=== PATIENT | female | born 1940 | race Hispanic/Latino ===

== ENCOUNTER 2024-12-10 11:49 | Observation (INO) | payer MEDICARE ==
[~2024-12-10] VITALS: Ht 149.9 cm; Wt 74.1 kg
[2024-12-10 12:45] LABS: BASOPHILS # (AUTO) 0.04 K/uL (0.00-0.20); BASOPHILS % (AUTO) 0.6 % (0.0-5.0); EOSINOPHILS # (AUTO) 0.01 K/uL (0.00-0.70); EOSINOPHILS % (AUTO) 0.1 % (0.0-8.0); HEMATOCRIT 46.2 % (36-48); IMMATURE GRANULOCYTE ABSOLUTE 0.02 K/uL (0-1); LYMPHOCYTES # (AUTO) 1.2 K/uL (1.0-4.8); LYMPHOCYTES % (AUTO) 17.1 % (21.0-51.0); MEAN CORPUSCULAR HEMOGLOBIN 30.1 pg (27.0-33.0); MEAN CORPUSCULAR HGB CONC 32.5 g/dL (32.0-36.0); MEAN CORPUSCULAR VOLUME 92.8 fL (79-99); MONOCYTES # (AUTO) 0.1 K/uL (0.1-1.0); MONOCYTES % (AUTO) 1.3 % (3.0-13.0); NEUTROPHILS # (AUTO) 5.6 K/uL (1.8-7.7); NEUTROPHILS % (AUTO) 80.6 % (40.0-77.0); PLATELET COUNT (AUTO) 212 K/uL (130-400); RED BLOOD CELL COUNT(AUTO) 4.98 MIL/uL (4.00-5.50); RED CELL DISTRIBUTION WIDTH 13.1 % (11.0-15.5); WHITE BLOOD COUNT (AUTO) 6.9 K/uL (4.8-10.8)
[2024-12-10 13:04] LABS: CREATININE 0.8 mg/dL (0.5-1.0); POTASSIUM 4.1 mmol/L (3.5-5.1)
--- NOTE | 2024-12-10 13:04 | HMCIMG ---
Exam Type: CT HEAD/BRAIN W/O CONTRAST Clinical Information: weakness/ Comparison: None CT Dose Index (CTDI): 57.33 mGy Dose Length Product (DLP): 956.79 total mGy-cm Findings: The examination shows atrophy. There is low attenuation throughout the periventricular white matter locations, consistent with chronic small vessel ischemic changes. No acute intra- or extra-axial fluid collections are seen. There is no evidence of acute or chronic hemorrhage. There is no mass effect or shift of midline structures. There are no areas to suggest acute infarct. The skull windows show no significant abnormalities. IMPRESSION: 1. ATROPHY AND CHRONIC SMALL VESSEL ISCHEMIC CHANGES. This study was performed using dose reduction techniques to include automated exposure control and/or adjustment of the mA and/or kV according to patient size.
--- NOTE | 2024-12-10 13:08 | EKG ---
[facility] Test Date: 2024-12-10 Test Time: 12:12:22 Pat Name: MISAEL LAMB Department: ED Room: Gender: F Dry Color Mixer: [id number] : 1940 Requested By: BOYD BRICE Order Number: [id number] Reading MD: Sha Butler Measurements Intervals [place] Rate: 70 P: 24 GA: 165 QRS: 8 QRSD: 78 T: 72 QT: 423 QTc: 456 Interpretive Statements Sinus rhythm No previous ECG available for comparison Electronically Signed On 12-10-2024 13:37:30 CDT by Sha Butler Please click the below link to view image of tracing.
[2024-12-10 13:09] LABS: INR 0.96 (0.85-1.15); PROTHROMBIN TIME 10.2 SEC (9.6-11.6)
[2024-12-10 13:11] LABS: PARTIAL THROMBOPLASTIN TIME 28.7 SEC (26.3-35.5)
[2024-12-10 13:15] LABS: B-TYPE NATRIURETIC PEPTIDE 20 pg/mL (0-100)
[2024-12-10 13:16] LABS: APPEARANCE,URINE CLEAR (CLEAR); BILIRUBIN,URINE NEGATIVE (NEGATIVE); COLOR,URINE LIGHT-YELLOW (YELLOW); GLUCOSE, URINE (UA) >=1000 mg/dL (NEGATIVE); KETONES,URINE NEGATIVE (NEGATIVE); LEUKOCYTE ESTERASE ,URINE 250 Leu/uL (NEGATIVE); NITRATE,URINE NEGATIVE (NEGATIVE); OCCULT BLOOD,URINE NEGATIVE (NEGATIVE); PROTEIN,URINE NEGATIVE (NEGATIVE); UROBILINOGEN,URINE 0.2 mg/dL (0.2-1.0)
--- NOTE | 2024-12-10 13:17 | HMCIMG ---
Exam Type: CHEST 1VW Clinical Information: cp Comparison: None Findings: The lungs are clear of infiltrates. The heart is enlarged. Bony and soft tissue structures of the chest wall are unremarkable. IMPRESSION: Cardiomegaly. Clear lungs.
[2024-12-10 13:32] LABS: ADD UA MICROSCOPIC YES
[2024-12-10 13:34] LABS: BACTERIA,URINE RARE /HPF (None Seen); SQUAMOUS EPITHELIAL CELL,UR FEW /HPF (0-2); WBC,URINE 26-50 /HPF (0-1)
--- NOTE | 2024-12-10 15:09 | ERN ---
General Chief Complaint: Allergic Reaction Stated Complaint: SWOLLEN FACE, LIPS Time Seen by MD: 11:50 Source: patient History of Present Illness Initial Comments This is a an 84-year-old female coming in to be evaluated for aphasia. Per daughter patient was not able to speak earlier today. She was evaluated at another emergency room was told that it was secondary to an allergic reaction since she had swollen lips. But daughter states that the aphasia was very pronounced and that is where there here. Allergies: Coded Allergies: baclofen (Unverified Allergy, Unknown, 12/10/24) Past Medical History Past Medical History: Diabetes-Type II, High Cholesterol, Hypertension Past Surgical History: Cholecystectomy ROS Dictation CONSTITUTIONAL: No chills, no fever, no weakness, no diaphoresis, no malaise. HEAD/FACE: No signs of trauma. EENT: No eye pain, no blurred vision, no tearing, no double vision, no ear pain, no ear discharge, no nose pain, no nasal congestion, no throat pain, no throat swelling, no mouth pain. RESPIRATORY: No cough, no orthopnea, no SOB, no stridor, no wheezing. CARDIOVASCULAR: No chest pain, no edema, no palpitations, no syncope. GASTROINTESTINAL/ABDOMINAL: No abdominal pain, no constipation, no diarrhea, no nausea, no vomiting. GENITOURINARY: No abnormal discharge, no dysuria, no frequent urination, no hematuria. No complaints of pain in the genitals. MUSCULOSKELETAL: No back pain, no gout, no joint pain, no joint swelling, no muscle pain, no muscle stiffness, no neck pain. INTEGUMENTARY: No change in color, no change in hair/nails, no dryness, no lesion, no lumps, no rash. NEUROLOGICAL/PSYCH: No anxiety, not depressed, no emotional problem, no headache, no numbness, no pre-existing deficit, no history of seizures, no tremors, no weakness. HEMATOLOGIC/LYMPHATIC: Not anemic, no history of blood clots, no apparent bleeding, no bruising, glands not swollen. All Systems Negative, Except as Noted. Physical Exam Physical Exam Dictation VITAL SIGNS: Reviewed. GENERAL APPEARANCE: Alert, oriented x3, no acute distress, obese. HEAD AND FACE: Non-traumatic. EYES: PERRL, pink conjunctivas, eyelid no trauma, anterior chamber clear. EARS: Pinnas intact and no signs of trauma or erythema. Ear canals clear and no discharge. TMs no erythema. NOSE: No discharge, no bleeding. OROPHARYNX: Mouth normal, teeth no caries, tongue pink. Pharynx clear, no erythema. Tonsils no exudates, no abscesses noted. Mucous membrane moist. NECK: Supple, non-tender, no thyromegaly, no masses, no JVD, no bruits. BREAST: Deferred. CHEST: No tenderness, no crepitus, no paradoxical movement, no retractions. LUNGS: Clear, well-ventilated, symmetric, no rales, no wheezing, no rhonchi, no stridor, good breath sounds bilaterally. HEART: Regular rate, regular rhythm, no murmur, no gallops. VASCULAR: No peripheral edema. ABDOMEN: Soft, positive bowel sounds, nondistended, no guarding, nontender, no rebound, no masses no hepatomegaly, no splenomegaly, no Sotelo's sign, no hernias. RECTAL: Deferred. GENITAL: Deferred. NEUROLOGICAL: Normal speech, gross motor function intact, gross sensory function intact. MUSCULOSKELETAL: Neck nontender, full range of motion, back nontender, full range of motion. EXTREMITIES: Nontender, full range of motion. SKIN: Color pink, dry, no turgor, no rash, no lacerations, no abrasions, no contusions. LYMPHATICS: Deferred. Results Laboratory and Microbiology Lab and Micro Result Laboratory Tests Test 12/10/24 12:17 12/10/24 12:35 Whole Blood Glucose 172 MG/DL (70-110) H White Blood Count 6.9 K/uL (4.8-10.8) Red Blood Count 4.98 MIL/uL (4.00-5.50) Hemoglobin 15.0 g/dL (12.0-16.0) Hematocrit 46.2 % (36-48) Mean Corpuscular Volume 92.8 fL (79-99) Mean Corpuscular Hemoglobin 30.1 pg (27.0-33.0) Mean Corpuscular Hemoglobin Concent 32.5 g/dL (32.0-36.0) Red Cell Distribution Width 13.1 % (11.0-15.5) Platelet Count 212 K/uL (130-400) Mean Platelet Volume 11.2 fL (7.5-10.5) H Immature Granulocyte % (Auto) 0.3 % (0-1) Neutrophils (%) (Auto) 80.6 % (40.0-77.0) H Lymphocytes (%) (Auto) 17.1 % (21.0-51.0) L Monocytes (%) (Auto) 1.3 % (3.0-13.0) L Eosinophils (%) (Auto) 0.1 % (0.0-8.0) Basophils (%) (Auto) 0.6 % (0.0-5.0) Neutrophils # (Auto) 5.6 K/uL (1.8-7.7) Lymphocytes # (Auto) 1.2 K/uL (1.0-4.8) Monocytes # (Auto) 0.1 K/uL (0.1-1.0) Eosinophils # (Auto) 0.01 K/uL (0.00-0.70) Basophils # (Auto) 0.04 K/uL (0.00-0.20) Absolute Immature Granulocyte (auto 0.02 K/uL (0-1) Nucleated Red Blood Cells 0.0 % (0.0-0.19) Prothrombin Time 10.2 SEC (9.6-11.6) Prothromb Time International Ratio 0.96 (0.85-1.15) Activated Partial Thromboplast Time 28.7 SEC (26.3-35.5) Urine Color LIGHT-YELLOW (YELLOW) Urine Appearance CLEAR (CLEAR) Urine pH 5.0 (5.0-8.0) Urine Specific [place] 1.019 (1.001-1.031) Urine Protein NEGATIVE mg/dL (NEGATIVE) Urine Glucose (UA) >=1000 mg/dL (NEGATIVE) H Urine Ketones NEGATIVE mg/dL (NEGATIVE) Urine Occult Blood NEGATIVE (NEGATIVE) Urine Nitrate NEGATIVE (NEGATIVE) Urine Bilirubin NEGATIVE mg/dL (NEGATIVE) Urine Urobilinogen 0.2 mg/dL (0.2-1.0) Urine Leukocyte Esterase 250 Paulina/uL (NEGATIVE) H Urine RBC 2-5 /HPF (0-1) H Urine WBC 26-50 /HPF (0-1) H Urine Squamous Epithelial Cells FEW /HPF (0-2) Urine Bacteria RARE /HPF (None Seen) Sodium Level 145 mmol/L (136-145) Potassium Level 4.1 mmol/L (3.5-5.1) Chloride Level 108 mmol/L (101-111) Carbon Dioxide Level 28 mmol/L (21-32) Blood Urea Nitrogen 13 mg/dL (7-18) Creatinine 0.8 mg/dL (0.5-1.0) Glomerular Filtration Rate Calc 74 mL/min (>90) Random Glucose 165 mg/dL (70-105) H Total Calcium 9.3 mg/dL (8.5-10.1) Total Creatine Kinase 41 U/L (21-232) Troponin I High Sensitivity 12 ng/L (4-50) B-Type Natriuretic Peptide 20 pg/mL (0-100) LDL Cholesterol 78 mg/dL (0-99) Labs Reviewed?: Yes EKG/XRAY/US/CT/MRI EKG Comment 12/10/2024 time 12:12 p.m. Ventricular rate 70 Sinus rhythm [place] [address] wave elevation or depression X-RAY Comment [address] [address] IMAGING REPORT Signed PATIENT: MISAEL LAMB MR#: [id number] : 1940 SEX: F AGE: 84 LOCATION: [facility] ORDER 05 STATUS: REG ER REPORT#: [id number] SERVICE 03 REASON: cp ORDERING PHYSICIAN: BOYD BRICE MD PROCEDURE: CXR1VW - CHEST 1VW Exam Type: CHEST 1VW Clinical Information: cp Comparison: None Findings: The lungs are clear of infiltrates. The heart is enlarged. Bony and soft tissue structures of the chest wall are unremarkable. IMPRESSION: Cardiomegaly. Clear lungs. DICTATED BY: GRAYSON BARBER MD DATE: 12/10/241313 ELECTRONICALLY SIGNED BY: GRAYSON BARBER MD DATE: 12/10/241316 CT Scan Comment IMAGING REPORT Signed PATIENT: MISAEL LAMB MR#: [id number] : 1940 SEX: F AGE: 84 LOCATION: [facility] ORDER 05 STATUS: REG ER REPORT#: [id number] SERVICE 1204 REASON: weakness/ ORDERING PHYSICIAN: BOYD BRICE MD PROCEDURE: HEAD WO - CT HEAD/BRAIN W/O CONTRAST Exam Type: CT HEAD/BRAIN W/O CONTRAST Clinical Information: weakness/ Comparison: None CT Dose Index (CTDI): 57.33 mGy Dose Length Product (DLP): 956.79 total mGy-cm Findings: The examination shows atrophy. There is low attenuation throughout the periventricular white matter locations, consistent with chronic small vessel ischemic changes. No acute intra- or extra-axial fluid collections are seen. There is no evidence of acute or chronic hemorrhage. There is no mass effect or shift of midline structures. There are no areas to suggest acute infarct. The skull windows show no significant abnormalities. IMPRESSION: 1. ATROPHY AND CHRONIC SMALL VESSEL ISCHEMIC CHANGES. This study was performed using dose reduction techniques to include automated exposure control and/or adjustment of the mA and/or kV according to patient size. DICTATED BY: GRAYSON BARBER MD DATE: 12/10/24 1300 ELECTRONICALLY SIGNED BY: GRAYSON BARBER MD DATE: 12/10/24 1304 MDM MDM: Differential diagnosis: Allergic reaction, TIA, CVA, Rationale: Tests considered and ordered secondary to shared decision making include: labs, ECG and radiology Previous outside records reviewed: Old ER visits. Risk of complication and/or morbidity or mortality of patient management: None Medications-Per medication reconciliation Need for hospitalization: Patient does meet criteria for hospitalization. Need for emergency major/minor surgery: No There are no social concerns with this patient. Prescription drug management Prescriptions will include symptomatic care Patient's prior external medical records from other ER visits were reviewed by me as indicated. Prior testing and results from previous visits were reviewed. Prior tests were taken into account with medical decision making and resource utilization, independent historian/historians were used to obtain complete medical history. I independently interpreted the test that were performed, results were reviewed by me and considered findings on radiology if ordered. Medical management and examination interpretation discussions were had by me with other qualified healthcare professionals as indicated for the patient's care. Patient will be admitted under the care of hospitalist group for ongoing evaluation of a possible TIA. ED Course Orders Procedure Category Date Status Time Cbc With Differential LAB 12/10/24 Complete 12:04 Prothrombin Time With LAB 12/10/24 Complete INR 12:04 Partial LAB 12/10/24 Complete Thromboplastin Time 12:04 Ct Head/Brain W/O CT 12/10/24 Resulted Contrast 12:04 Chest 1vw RAD 12/10/24 Resulted 12:04 12 Lead Ekg Tracing- EKG 12/10/24 Resulted Technical 12:04 Creatine Kinase, Total LAB 12/10/24 Complete 12:04 Ldl Direct LAB 12/10/24 Complete 12:04 Troponin I High LAB 12/10/24 Complete Sensitivity 12:04 Urinalysis Profile LAB 12/10/24 Complete 12:04 B-Type Natriuretic LAB 12/10/24 Complete Peptide 12:04 Bedside Glucose CPOE 12/10/24 Transmitted Fingerstick 12:04 Basic Metabolic Panel LAB 12/10/24 Complete 12:04 Culture Urine MANI 12/10/24 In Process 13:32 Vital Signs Date Time Temp Pulse Resp B/P (MAP) Pulse Ox O2 Delivery O2 Flow Rate FiO2 12/10/24 14:00 97.7 75 12 136/67 97 Room Air* 0 21 12/10/24 12:39 97.7 67 14 132/64 98 Room Air* 0 21 12/10/24 11:53 98.4 78 16 152/66 95 Room Air 0 DX & DISP Disposition: Inpatient Decision to Admit Time: 15:17 Departure Impression: Primary Impression: TIA (transient ischemic attack) Additional Impression: Allergic reaction Condition: Stable Referrals: SHERIF TRIPATHI MD (PCP) BOYD BRICE MD Dec 10, 2024 15:09
[2024-12-10] MEDS ORDERED: acetaMINOPHEN 325 MG TAB PO PRN (15:30)
[2024-12-10] MEDS ORDERED: LACTULOSE 20 GM/30 ML UDCUP PO PRN (15:30)
[2024-12-10] MEDS ORDERED: ondanSETRON 4MG INJ IVP PRN (15:30)
[2024-12-10] MEDS ORDERED: hydrALAZine 20MG/ML VIAL IV PRN (15:30)
--- NOTE | 2024-12-10 15:33 | HP ---
[facility] Date of Service: Dec 10, 2024 Time of Service: 15:15 HISTORY OF PRESENT ILLNESS: [ ] Admission date 12/10/2024 PCP: Mickey Raphael MD chief complaints: swollen face and lip Chris Mcintosh is a 84-year-old female that presents in ED with chief complaints episodes of aphasia. Witnessed per patient son, Earlier she was treated at ER standing for chief complaints of swollen face and lips patient was treated with IV steroids and Benadryl. Daughter is concerned that her aphasia with slurred speech, slow to respond was very pronounced while she was in ER standing. ER physician from emergency room was told that it was secondary to a allergic reaction since her lips were swollen. Patient left AMA per daughter wishes and brought her to [facility] ER for further evaluation and treatment. Suspecting TIA versus stroke. Patient seen in ED: patient continue with swollen to upper lip. patient has a slight facial drool to right side: which her daughter says she has always had it. The patient was able to answer my questions moves all extremity with limited left lower extremity given to chronic low back pain. All questions and concerns were addressed. REVIEW OF SYSTEMS 14 point ROS was obtained all relevant positives documented otherwise ROS negative PAST MEDICAL HISTORY: [ ] refer to HPI PAST SURGICAL HISTORY: [ ] Cholecystectomy appendectomy, hysterectomy one removal ovary PAST SOCIAL HISTORY: [ ] FAMILY HISTORY: [ ] noncontributory Coded Allergies: baclofen (Unverified Allergy, Unknown, 12/10/24) PHYSICAL EXAM GENERAL APPEARANCE: The patient is awake, alert, and oriented, in no acute cardiopulmonary distress. NEUROLOGICAL: Cranial nerves II-XII grossly intact. Motor is 5/5 in bilateral upper and lower extremities proximal to distal. No sensory deficits. HEENT: Face is symmetric. Pupils are equal and reactive. Extraocular movements are intact. NECK: Supple. No JVD. No thyromegaly. No submental, submandibular, pre- /postauricular, occipital or supraclavicular lymphadenopathy. CHEST: Normal chest expansion. No Telemetry. LUNGS: Absence of any rales, rhonchi or any wheezing. CARDIOVASCULAR: Regular. S1 and S2 normal. No appreciable rubs, murmurs or gallops. ABDOMEN: Soft, nontender, and nondistended. There is no rebound, voluntary guarding, or rigidity. : Deferred. No Vasquez. EXTREMITIES: Non-edematous and not cyanotic. No clubbing. Good capillary refill. SKIN: No skin breakdown. Vital Sign (Last 24 Hours) 12/10/24 14:00 Temp 97.7 Pulse 75 Resp 12 B/P (MAP) 136/67 Pulse Ox 97 O2 Delivery Room Air* O2 Flow Rate 0 FiO2 21 LABS: Laboratory: Test 12/10/24 12:35 12/10/24 12:17 Range/Units White Blood Count 6.9 4.8-10.8 K/uL Red Blood Count 4.98 4.00-5.50 MIL/uL Hemoglobin 15.0 12.0-16.0 g/dL Hematocrit 46.2 36-48 % Mean Corpuscular Volume 92.8 79-99 fL Mean Corpuscular Hemoglobin 30.1 27.0-33.0 pg Mean Corpuscular Hemoglobin Concent 32.5 32.0-36.0 g/dL Red Cell Distribution Width 13.1 11.0-15.5 % Platelet Count 212 130-400 K/uL Mean Platelet Volume 11.2 H 7.5-10.5 fL Immature Granulocyte % (Auto) 0.3 0-1 % Neutrophils (%) (Auto) 80.6 H 40.0-77.0 % Lymphocytes (%) (Auto) 17.1 L 21.0-51.0 % Monocytes (%) (Auto) 1.3 L 3.0-13.0 % Eosinophils (%) (Auto) 0.1 0.0-8.0 % Basophils (%) (Auto) 0.6 0.0-5.0 % Neutrophils # (Auto) 5.6 1.8-7.7 K/uL Lymphocytes # (Auto) 1.2 1.0-4.8 K/uL Monocytes # (Auto) 0.1 0.1-1.0 K/uL Eosinophils # (Auto) 0.01 0.00-0.70 K/uL Basophils # (Auto) 0.04 0.00-0.20 K/uL Absolute Immature Granulocyte (auto 0.02 0-1 K/uL Nucleated Red Blood Cells 0.0 0.0-0.19 % Prothrombin Time 10.2 9.6-11.6 SEC Prothromb Time International Ratio 0.96 0.85-1.15 Activated Partial Thromboplast Time 28.7 26.3-35.5 SEC Urine Color LIGHT-YELLOW YELLOW Urine Appearance CLEAR CLEAR Urine pH 5.0 5.0-8.0 Urine Specific [place] 1.019 1.001-1.031 Urine Protein NEGATIVE NEGATIVE mg/dL Urine Glucose (UA) >=1000 H NEGATIVE mg/dL Urine Ketones NEGATIVE NEGATIVE mg/dL Urine Occult Blood NEGATIVE NEGATIVE Urine Nitrate NEGATIVE NEGATIVE Urine Bilirubin NEGATIVE NEGATIVE mg/dL Urine Urobilinogen 0.2 0.2-1.0 mg/dL Urine Leukocyte Esterase 250 H NEGATIVE Paulina/uL Urine RBC 2-5 H 0-1 /HPF Urine WBC 26-50 H 0-1 /HPF Urine Squamous Epithelial Cells FEW 0-2 /HPF Urine Bacteria RARE None Seen /HPF Sodium Level 145 136-145 mmol/L Potassium Level 4.1 3.5-5.1 mmol/L Chloride Level 108 101-111 mmol/L Carbon Dioxide Level 28 21-32 mmol/L Blood Urea Nitrogen 13 7-18 mg/dL Creatinine 0.8 0.5-1.0 mg/dL Glomerular Filtration Rate Calc 74 >90 mL/min Random Glucose 165 H 70-105 mg/dL Total Calcium 9.3 8.5-10.1 mg/dL Total Creatine Kinase 41 21-232 U/L Troponin I High Sensitivity 12 4-50 ng/L B-Type Natriuretic Peptide 20 0-100 pg/mL LDL Cholesterol 78 0-99 mg/dL Whole Blood Glucose 172 H 70-110 MG/DL DIAGNOSTICS / RADIOLOGY: [ ] ASSESSMENT: Aphasia: TIA, stroke versus allergic reaction POA allergic reaction secondary to new medication; Baclofen POA chronic problems: DM type II, HTN, HLD chronic PLAN: [ ] Admit: Medical and surgical floor condition: guarded Status: full code neuro check q 4 hrs x24 hrs Benadryl 12.5 mg IV x3 doses Consultants: neurologist: DR Gregorio will follow recommendations Test: carotid doppler, MRI brain, Echo to eval LV function PT eval and treat, Speech eval NPO for now until seen by speech. aspiration precaution HOB elevate at 45 degree at all time. Fall precaution Labs cbc, cmp, mag+ tsh, lipid panel in am A1c Replace electrolytes as needed as per protocol to keep potassium above 4.0 mag nesium 2.0. Home medications pending to be reviewed by RN nurse. PRN: MEDICATIONS Tylenol 650 mg po every 4 hrs for fever Zofran 4 mg IV every 6 hrs for n/v Hydralazine 5 mg IV every 4 hrs systolic pressure > 160 bowel regiment: lactulose 20 gm PO BID PRN constipation Supportive measures: DVT ppx, GI ppx all questions answered time spent: > 35 min Supervising MD: Dr. Jane c/d This document was generated in part using voice recognition software, occasional wrong word or sound alike substitutions may have occurred due to the inherent limitations of voice recognition software. Read the chart carefully and recognize using context, where the substitutions have occurred. Although every effort was made to edit the content, supervisor claims and typing errors may occur ATTESTATION BY PHYSICIAN I have seen and examined the patient. I reviewed the documentation, medical decision making, and treatment plan as noted by the mid-level provider above. I agree with the findings and plan of care. MARY JANE MD, ELIZABETH NP Dec 10, 2024 15:33
[2024-12-10] MEDS ORDERED: PoTASSium chloRIDE 20MEQ/100ML 100 ML IV PRN ×2 (16:00)
[2024-12-10] MEDS ORDERED: PoTASSium chl 10% ELIXIR 20MEQ 20 MEQ/15 ML UDCUP PO PRN (16:00)
--- NOTE | 2024-12-10 16:04 | HMCIMG ---
Carotid Duplex and color-flow Doppler bilateral Clinical Information: tia, storke Comparison: None Findings: Mild bilateral bifurcation plaque is seen. No hemodynamically significant stenosis noted. Left Internal Carotid Artery Peak Systolic Velocity (PSV), Left Internal Carotid to Common Carotid Artery peak systolic velocity ratio, Right Internal Carotid Artery Peak Systolic Velocity (PSV) and Right Internal Carotid to Common Carotid Artery peak systolic velocity ratio, are all within normal limits. External carotid artery velocities normal bilaterally. Bilateral vertebral arteries show normal velocities and waveforms with antegrade flow. Impression: No hemodynamically significant stenosis noted. NASCET CRITERIA. The degree of internal carotid artery stenosis is based on NASCET criteria. Normal is no stenosis. Mild is less than 50% stenosis. Moderate is 50-69% stenosis. Severe is 70% to 99% stenosis. Total occlusion is no detectable patent lumen.
[2024-12-10] MEDS: INSULIN humuLIN R 100 UNIT/ML 3ML SQ SCH (16:30)
[2024-12-10] MEDS: DiphenhydrAMINE HCL 50 MG/ML VIAL IV SCH (16:30)
--- NOTE | 2024-12-10 17:45 | NUR ---
BEDSIDE SWALLOW EVAL COMPLETED. No s/s of aspiration. Recommend regular solids, thin liquids and pills whole with liquids as tolerated. Compensatory strategies: 1. sit upright during oral intake EQUIPMENT SALES SPECIALIST reviewed results and recommendations with patient and nurse Daryl. No family present at time of evaluation. EQUIPMENT SALES SPECIALIST educated patient on risks and consequences of aspiration. Speech therapy not warranted at this time. All questions answered. Addendum: 12/10/[address] DEREK GONZALEZ Amended: Links added.
--- NOTE | 2024-12-10 17:50 | NUR ---
COGNITIVE-LINGUISTIC EVALUATION COMPLETED. WITHIN FUNCTIONAL LIMITS. EVALUATION: Pt AAOX4. Pt REQUESTS WANTS AND NEEDS INDEPENDENTLY WITH CLEAR SPEECH INTELLIGIBILITY. Pt COMMUNICATING AT CONVERSATIONAL LEVEL WITH NO DEFICITS IDENTIFIED AT THIS TIME. Pt COMPLETED COGNITIVE-LINGUISTIC EVALUATION WITH CORRECT AND TIMELY ANSWERS. SPEECH THERAPY NOT WARRANTED. ALL QUESTIONS ANSWERED AT THIS TIME. SEARCH DIRECTOR REVIEWED RESULTS AND RECOMMENDATIONS WITH PATIENT AND NURSE JOLENE. Addendum: 12/10/[address]EREK GONZALEZ Amended: Links added.
[2024-12-10] MEDS: 0.9%NACL 1000ML 1,000 ML IV SCH (18:01)
--- NOTE | 2024-12-10 20:30 | NUR ---
DR. CORTES AT BEDSIDE
--- NOTE | 2024-12-10 21:21 | CONS ---
CONSULTATION NOTE Date of Service: Dec 10, 2024 Reason for Consultation: Evaluation of dysarthria Requesting Physician: Hospitalist HISTORY OF PRESENT ILLNESS: This is an 84-year-old right-handed lady who has a past medical history remarkab le for obesity hypertension was admitted for evaluation and management of dysarthria. The patient went to hospital in [place] [address] emergency room after the patient started having swelling of the face bilaterally in association with lip swelling and dysarthria. She was told that potentially the culprit of for allergic reaction was baclofen. The patient left AMA and came to our emergency room for care and management of the dysarthria. On arrival her slurred speech improved but not completely resolve and I was consulted for evaluation and management of slurred speech. The patient's facial and lip swelling has resolved at this time in association with her dysarthria. A CT scan of the head without contrast was negative for any major abnormalities. The patient denies any right-sided left-sided weakness numbness or tingling sensation or any other symptomatology associated. REVIEW OF SYSTEMS CONSTITUTIONAL: Denies fever, chills, or fatigue. HEAD/FACE: Facial swelling EENT: Ear pain RESPIRATORY: Denies shortness of breath, cough, wheezing CARDIOVASCULAR: Denies chest pain, palpitation, syncope GASTROINTESTINAL/ABDOMINAL: Denies abdominal pain, constipation, diarrhea, nausea or vomiting GENITOURINARY: Denies dysuria or hematuria. MUSCULOSKELETAL: Denies joint pain, tenderness, or trauma. INTEGUMENTARY: Denies rash or itchiness NEUROLOGICAL/PSYCH: Dysarthria PAST MEDICAL HISTORY: Hypertension obesity PAST SURGICAL HISTORY: Noncontributory PAST SOCIAL HISTORY: No tobacco alcohol recreational drug abuse FAMILY HISTORY: No family history of stroke or seizures Coded Allergies: baclofen (Unverified Allergy, Unknown, 12/10/24) PHYSICAL EXAM Mental status: The patient is alert, attentive, and oriented. Speech is clear and fluent with good repetition, comprehension, and naming. Pt recalls 3/3 objects at 5 minutes. Cranial nerves: CN II: Visual cabrera are full to confrontation. CN III, IV, : At primary gaze, there is no eye deviation. CN V: Facial sensation is intact to pinprick in all 3 divisions bilaterally. Corneal responses are intact. CN VII: Face is symmetric with normal eye closure and smile. CN VIII: Hearing is normal to rubbing fingers CN IX, X: Palate elevates symmetrically. Phonation is normal. CN XI: Head turning and shoulder shrug are intact CN XII: Tongue is midline with normal movements and no atrophy. Motor: There is no pronator drift of out-stretched arms. Muscle bulk and tone are normal. Strength is full bilaterally. Reflexes: Reflexes are 2+ and symmetric at the biceps, triceps, knees, and ankles. Plantar responses are flexor. Sensory: Light touch, pinprick, position sense, and vibration sense are intact in fingers and toes. Coordination: Rapid alternating movements and fine finger movements are intact. There is no dysmetria on dlatpf-rz-[id number] and zkuh-[id number]-segq. There are no abnormal or extraneous movements. Romberg is absent. Gait/Stance: Not evaluated NIH stroke scale: 0 Vital Sign (Last 24 Hours) 12/10/24 14:00 Temp 97.7 Pulse 75 Resp 12 B/P (MAP) 136/67 Pulse Ox 97 O2 Delivery Room Air* O2 Flow Rate 0 FiO2 21 LABS: Laboratory: Test 12/10/24 16:17 12/10/24 12:35 Range/Units Whole Blood Glucose 166 H 70-110 MG/DL White Blood Count 6.9 4.8-10.8 K/uL Red Blood Count 4.98 4.00-5.50 MIL/uL Hemoglobin 15.0 12.0-16.0 g/dL Hematocrit 46.2 36-48 % Mean Corpuscular Volume 92.8 79-99 fL Mean Corpuscular Hemoglobin 30.1 27.0-33.0 pg Mean Corpuscular Hemoglobin Concent 32.5 32.0-36.0 g/dL Red Cell Distribution Width 13.1 11.0-15.5 % Platelet Count 212 130-400 K/uL Mean Platelet Volume 11.2 H 7.5-10.5 fL Immature Granulocyte % (Auto) 0.3 0-1 % Neutrophils (%) (Auto) 80.6 H 40.0-77.0 % Lymphocytes (%) (Auto) 17.1 L 21.0-51.0 % Monocytes (%) (Auto) 1.3 L 3.0-13.0 % Eosinophils (%) (Auto) 0.1 0.0-8.0 % Basophils (%) (Auto) 0.6 0.0-5.0 % Neutrophils # (Auto) 5.6 1.8-7.7 K/uL Lymphocytes # (Auto) 1.2 1.0-4.8 K/uL Monocytes # (Auto) 0.1 0.1-1.0 K/uL Eosinophils # (Auto) 0.01 0.00-0.70 K/uL Basophils # (Auto) 0.04 0.00-0.20 K/uL Absolute Immature Granulocyte (auto 0.02 0-1 K/uL Nucleated Red Blood Cells 0.0 0.0-0.19 % Prothrombin Time 10.2 9.6-11.6 SEC Prothromb Time International Ratio 0.96 0.85-1.15 Activated Partial Thromboplast Time 28.7 26.3-35.5 SEC Urine Color LIGHT-YELLOW YELLOW Urine Appearance CLEAR CLEAR Urine pH 5.0 5.0-8.0 Urine Specific [place] 1.019 1.001-1.031 Urine Protein NEGATIVE NEGATIVE mg/dL Urine Glucose (UA) >=1000 H NEGATIVE mg/dL Urine Ketones NEGATIVE NEGATIVE mg/dL Urine Occult Blood NEGATIVE NEGATIVE Urine Nitrate NEGATIVE NEGATIVE Urine Bilirubin NEGATIVE NEGATIVE mg/dL Urine Urobilinogen 0.2 0.2-1.0 mg/dL Urine Leukocyte Esterase 250 H NEGATIVE Paulina/uL Urine RBC 2-5 H 0-1 /HPF Urine WBC 26-50 H 0-1 /HPF Urine Squamous Epithelial Cells FEW 0-2 /HPF Urine Bacteria RARE None Seen /HPF Sodium Level 145 136-145 mmol/L Potassium Level 4.1 3.5-5.1 mmol/L Chloride Level 108 101-111 mmol/L Carbon Dioxide Level 28 21-32 mmol/L Blood Urea Nitrogen 13 7-18 mg/dL Creatinine 0.8 0.5-1.0 mg/dL Glomerular Filtration Rate Calc 74 >90 mL/min Random Glucose 165 H 70-105 mg/dL Total Calcium 9.3 8.5-10.1 mg/dL Total Creatine Kinase 41 21-232 U/L Troponin I High Sensitivity 12 4-50 ng/L B-Type Natriuretic Peptide 20 0-100 pg/mL LDL Cholesterol 78 0-99 mg/dL DIAGNOSTICS / RADIOLOGY: CT scan of the head: Unremarkable ASSESSMENT / PLAN: 1).- dysarthria - secondary to facial swelling. No TIA or stroke based on the history and physical examination. No other complaints at this time. The patient denies any right upper or lower extremity weakness numbness and tingling sensation and the NIH stroke scale was 0. CT scan of the head without contrast was negative for stroke. No further tests are needed from the neurological standpoint the patient was educated her diagnosis and expressed understanding. Thank you for consultation I will sign off NANCY COLE MD Dec 10, 2024 21:21
--- NOTE | 2024-12-10 22:36 | NUR ---
REPORT GIVEN TO NURSE BYRD
[2024-12-10] MEDS ORDERED: ASPI-1443 PO (22:43)
[2024-12-10] MEDS ORDERED: PRAV20TA4 PO (22:43)
[2024-12-10] MEDS ORDERED: GABA-529 PO (22:43)
[2024-12-10] MEDS ORDERED: EMPA10TA PO (22:43)
[2024-12-10] MEDS ORDERED: VIBE75TA PO (22:43)
[2024-12-10] MEDS ORDERED: DULO30CA52 PO (22:43)
[2024-12-10] MEDS ORDERED: SITA1TAB6 PO (22:43)
[2024-12-10 22:50] VITALS: BP 120/65; PULSE 76; RESP 18; TEMP 97.9
[2024-12-11 04:25] VITALS: BP 113/51; PULSE 61; RESP 18; TEMP 97.8
[2024-12-11] MEDS: MAGNESIUM 2GM PREMIX 50ML 50 ML IV PRN (06:06)
[2024-12-11] MEDS: PoTASSium chloRIDE 20MEQ ER 20 MEQ ERTAB PO PRN (06:06)
[2024-12-11 08:00] VITALS: BP 112/60; PULSE 60; RESP 18; TEMP 97.9; O2SAT 95
[2024-12-11] MEDS: EMPAGLIFLOZIN 10MG TABLET PO SCH (09:16)
[2024-12-11] MEDS: ASPIRIN 81 MG EC TAB PO SCH (09:16)
[2024-12-11] MEDS: duloXETine HCL 30 MG CAP PO SCH (09:17)
[2024-12-11] MEDS: GABApentin 100 MG CAPSULE PO SCH (09:17)
--- NOTE | 2024-12-11 11:11 | HMCSR ---
APPROVED REPORT EXAM: Two-dimensional and M-mode echocardiogram with Doppler and color Doppler. INDICATION ICD: symptoms of TIA 2D Dimensions RVDd2.9 cmLVEF(%)46.8 (>50%)LVED Vol(simp.)54.5 mL IVSd0.7 (0.7-1.1cm)FS(%)23 %LVES Vol(simp.)19.2 mL LVDd3.6 (3.8-5.6cm)LA (2D)3.8 (1.6-4.0cm)LVEF(%, simp.)65 % PWd0.9 (0.7-1.1cm)Ao Root(2D)2.8 (2.0-3.7cm)LA ESV INDEX (BP)21.51 mL/m2 LVDs2.7 (2.5-4.0cm)LVOT diam1.8 (1.8-2.4cm) IVC diam1.5 cm Deformation Strain Apical 4-22.0 % Apical 2-22.0 % Apical 3-23.0 % Global Strain-22.0 % M-Mode Dimensions EPSS0.3 cm LA (MM)3.6 (1.6-4.0cm) Ao Root(MM)3.2 (2.0-3.7cm) Aortic Valve AoV Vmax1.5 m/Pamela Peak GR8.7 mmHgLVOT Vmax1.0 m/s AoV VTI0.4 mAo Mean GR4.2 mmHgLVOT VTI0.26 m JAY (VMAX)1.8 cm2AVA (VTI) 1.8 cm2 Mitral Valve MV E Bafc608.2 cm/sDECEL Jqib078 ms MV A Vmax83.9 cm/sP 1/2 T49 ms E/A ratio1.3MVA (PHT)4.5 cm2 TDI E/E' [id number] Medial E' Peak V6.00 cm/s Tricuspid Valve TR Vmax2.1 m/sRVSP18.1 mmHg TR Peak GR18.1 mmHg Left Ventricle The left ventricle is normal size. GS -22%. There is normal LV segmental wall motion. There is normal left ventricular wall thickness. LVEF is 60-65%. The left ventricular diastolic function is normal. Right Ventricle The right ventricle is normal size. The right ventricular systolic function is normal. Atria The left atrium size is normal. The right atrium size is normal. Aortic Valve The aortic valve is normal in structure. No aortic regurgitation is present. There is no aortic valvu lar stenosis. Mitral Valve The mitral valve is normal in structure. There is no mitral valve regurgitation noted. There is no mi tral valve stenosis. Tricuspid Valve The tricuspid valve is normal in structure. There is trace tricuspid valve regurgitation noted. Pulmonic Valve The pulmonary valve is normal in structure. There is no pulmonic valvular regurgitation. Great Vessels The aortic root is normal in size. The IVC is normal in size and collapses >50% with inspiration. Pericardium There is no pericardial effusion. Conclusion GS -22%. There is normal LV segmental wall motion. LVEF is 60-65%. The aortic root is normal in size. There is no pericardial effusion.
[2024-12-11 11:30] VITALS: BP 111/50; PULSE 57; RESP 18; TEMP 97.3
--- NOTE | 2024-12-11 12:55 | DS ---
Discharge Summary Hospital Course Summary: 84-year old female with past medical history of diabetes, hypertension, hyperlipidemia presented to ED with complaints of right-sided facial swelling , lip swelling and slurring of speech which started spontaneously couple of hours back. She denied consuming any new food, any new medication but can not exclude insect bite. No Similar history in the past. At the time of arrival, patient denied any worsening of her symptoms nor any other neurological symptoms. CT scan of head without contrast was unremarkable. Her vitals and labs were unremarkable. Urinalysis showed LE 250, WBC 26-50, preliminary urinary culture [place] [id number]. She remained asymptomatic. Neurology was consulted, NIHSS 0. The primary impression was dysarthria secondary to facial swelling. Neurology ruled out TIA or stroke. Patient was treated with IV Benadryl, IV normal saline and her symptoms resolved completely. Labs were ordered for complement levels, JULIAN-results pending. She is clinically stable at the time of discharge. [employer](s): Neurology- NANCY COLE [id number] CONSULTATION NOTE Date of Service: Dec 10, 2024 Reason for Consultation: Evaluation of dysarthria Requesting Physician: Hospitalist HISTORY OF PRESENT ILLNESS: This is an 84-year-old right-handed lady who has a past medical history remarkable for obesity hypertension was admitted for evaluation and management o f dysarthria. The patient went to hospital in [place] [address] emergency room after the patient started having swelling of the face bilaterally in association with lip swelling and dysarthria. She was told that potentially the culprit of for allergic reaction was baclofen. The patient left A and came to our emergency room for care and management of the dysarthria. On arrival her slurred speech improved but not completely resolve and I was consulted for evaluation and management of slurred speech. The patient's facial and lip swelling has resolved at this time in association with her dysarthria. A CT scan of the head without contrast was negative for any major abnormalities. The patient denies any right-sided left-sided weakness numbness or tingling sensation or any other symptomatology associated. REVIEW OF SYSTEMS CONSTITUTIONAL: Denies fever, chills, or fatigue. HEAD/FACE: Facial swelling EENT: Ear pain RESPIRATORY: Denies shortness of breath, cough, wheezing CARDIOVASCULAR: Denies chest pain, palpitation, syncope GASTROINTESTINAL/ABDOMINAL: Denies abdominal pain, constipation, diarrhea, nausea or vomiting GENITOURINARY: Denies dysuria or hematuria. MUSCULOSKELETAL: Denies joint pain, tenderness, or trauma. INTEGUMENTARY: Denies rash or itchiness NEUROLOGICAL/PSYCH: Dysarthria PAST MEDICAL HISTORY: Hypertension obesity PAST SURGICAL HISTORY: Noncontributory PAST SOCIAL HISTORY: No tobacco alcohol recreational drug abuse FAMILY HISTORY: No family history of stroke or seizures Coded Allergies: baclofen (Unverified Allergy, Unknown, 12/10/24) PHYSICAL EXAM Mental status: The patient is alert, attentive, and oriented. Speech is clear and fluent with good repetition, comprehension, and naming. Pt recalls 3/3 objects at 5 minutes. Cranial nerves: CN II: Visual cabrera are full to confrontation. CN III, IV, : At primary gaze, there is no eye deviation. CN V: Facial sensation is intact to pinprick in all 3 divisions bilaterally. Corneal responses are intact. CN VII: Face is symmetric with normal eye closure and smile. CN VIII: Hearing is normal to rubbing fingers CN IX, X: Palate elevates symmetrically. Phonation is normal. CN XI: Head turning and shoulder shrug are intact CN XII: Tongue is midline with normal movements and no atrophy. Motor: There is no pronator drift of out-stretched arms. Muscle bulk and tone are normal. Strength is full bilaterally. Reflexes: Reflexes are 2+ and symmetric at the biceps, triceps, knees, and ankles. Plantar responses are flexor. Sensory: Light touch, pinprick, position sense, and vibration sense are intact in fingers and toes. Coordination: Rapid alternating movements and fine finger movements are intact. There is no dysmetria on mfrcbi-ks-jnlf and rmtv-bejo-lpjm. There are no abnormal or extra neous movements. Romberg is absent. Gait/Stance: Not evaluated NIH stroke scale: 0 Vital Sign (Last 24 Hours) 12/10/24 14:00 Temp 97.7 Pulse 75 Resp 12 B/P (MAP) 136/67 Pulse Ox 97 O2 Delivery Room Air* O2 Flow Rate 0 FiO2 21 LABS: Laboratory: Test 12/10/24 16:17 12/10/24 12:35 Range/Units Whole Blood Glucose 166 H 70-110 MG/DL White Blood Count 6.9 4.8-10.8 K/uL Red Blood Count 4.98 4.00-5.50 MIL/uL Hemoglobin 15.0 12.0-16.0 g/dL Hematocrit 46.2 36-48 % Mean Corpuscular Volume 92.8 79-99 fL Mean Corpuscular Hemoglobin 30.1 27.0-33.0 pg Mean Corpuscular Hemoglobin Concent 32.5 32.0-36.0 g/dL Red Cell Distribution Width 13.1 11.0-15.5 % Platelet Count 212 130-400 K/uL Mean Platelet Volume 11.2 H 7.5-10.5 fL Immature Granulocyte % (Auto) 0.3 0-1 % Neutrophils (%) (Auto) 80.6 H 40.0-77.0 % Lymphocytes (%) (Auto) 17.1 L 21.0-51.0 % Monocytes (%) (Auto) 1.3 L 3.0-13.0 % Eosinophils (%) (Auto) 0.1 0.0-8.0 % Basophils (%) (Auto) 0.6 0.0-5.0 % Neutrophils # (Auto) 5.6 1.8-7.7 K/uL Lymphocytes # (Auto) 1.2 1.0-4.8 K/uL Monocytes # (Auto) 0.1 0.1-1.0 K/uL Eosinophils # (Auto) 0.01 0.00-0.70 K/uL Basophils # (Auto) 0.04 0.00-0.20 K/uL Absolute Immature Granulocyte (auto 0.02 0-1 K/uL Nucleated Red Blood Cells 0.0 0.0-0.19 % Prothrombin Time 10.2 9.6-11.6 SEC Prothromb Time International Ratio 0.96 0.85-1.15 Activated Partial Thromboplast Time 28.7 26.3-35.5 SEC Urine Color LIGHT-YELLOW YELLOW Urine Appearance CLEAR CLEAR Urine pH 5.0 5.0-8.0 Urine Specific [place] 1.019 1.001-1.031 Urine Protein NEGATIVE NEGATIVE mg/dL Urine Glucose (UA) >=1000 H NEGATIVE mg/dL Urine Ketones NEGATIVE NEGATIVE mg/dL Urine Occult Blood NEGATIVE NEGATIVE Urine Nitrate NEGATIVE NEGATIVE Urine Bilirubin NEGATIVE NEGATIVE mg/dL Urine Urobilinogen 0.2 0.2-1.0 mg/dL Urine Leukocyte Esterase 250 H NEGATIVE Paulina/uL Urine RBC 2-5 H 0-1 /HPF Urine WBC 26-50 H 0-1 /HPF Urine Squamous Epithelial Cells FEW 0-2 /HPF Urine Bacteria RARE None Seen /HPF Sodium Level 145 136-145 mmol/L Potassium Level 4.1 3.5-5.1 mmol/L Chloride Level 108 101-111 mmol/L Carbon Dioxide Level 28 21-32 mmol/L Blood Urea Nitrogen 13 7-18 mg/dL Creatinine 0.8 0.5-1.0 mg/dL Glomerular Filtration Rate Calc 74 >90 mL/min Random Glucose 165 H 70-105 mg/dL Total Calcium 9.3 8.5-10.1 mg/dL Total Creatine Kinase 41 21-232 U/L Troponin I High Sensitivity 12 4-50 ng/L B-Type Natriuretic Peptide 20 0-100 pg/mL LDL Cholesterol 78 0-99 mg/dL DIAGNOSTICS / RADIOLOGY: CT scan of the head: Unremarkable ASSESSMENT / PLAN: 1).- dysarthria - secondary to facial swelling. No TIA or stroke based on the history and physical examination. No other complaints at this time. The patient denies any right upper or lower extremity weakness numbness and tingling sensation and the NIH stroke scale was 0. CT scan of the head without contrast was negative for stroke. No further tests are needed from the neurological standpoint the patient was educated her diagnosis and expressed understanding. Thank you for consultation I will sign off NANCY COLE MD Dec 10, 2024 21:21 Electronically Signed by: NANCY COLE MD12/10/[id number] Electronically Co-Signed by: Procedure(s): PROCEDURE: ECHO CMP - ECHO 2-D COMPLETE APPROVED REPORT EXAM: Two-dimensional and M-mode echocardiogram with Doppler and color Doppler. INDICATION ICD: symptoms of TIA 2D Dimensions RVDd 2.9 cm LVEF(%) 46.8 (>50%) LVED Vol(simp.) 54.5 mL IVSd 0.7 (0.7-1.1cm) FS(%) 23 % LVES Vol(simp.) 19.2 mL LVDd 3.6 (3.8-5.6cm) LA (2D) 3.8 (1.6-4.0cm) LVEF(%, simp.) 65 % PWd 0.9 (0.7-1.1cm) Ao Root(2D) 2.8 (2.0-3.7cm) LA ESV INDEX (BP) 21.51 mL/m2 LVDs 2.7 (2.5-4.0cm) LVOT diam 1.8 (1.8-2.4cm) IVC diam 1.5 cm Deformation Strain Apical 4 -22.0 % Apical 2 -22.0 % Apical 3 -23.0 % Global Strain -22.0 % M-Mode Dimensions EPSS 0.3 cm LA (MM) 3.6 (1.6-4.0cm) Ao Root(MM) 3.2 (2.0-3.7cm) Aortic Valve AoV Vmax 1.5 m/s Ao Peak GR 8.7 mmHg LVOT Vmax 1.0 m/s AoV VTI 0.4 m Ao Mean GR 4.2 mmHg LVOT VTI 0.26 m JAY (VMAX) 1.8 cm2 JAY (VTI) 1.8 cm2 Mitral Valve MV E Vmax 107.2 cm/s DECEL Time 229 ms MV A Vmax 83.9 cm/s P 1/2 T 49 ms E/A ratio 1.3 MVA (PHT) 4.5 cm2 TDI E/E' Medial 17.9 Medial E' Peak V 6.00 cm/s Tricuspid Valve TR Vmax 2.1 m/s RVSP 18.1 mmHg TR Peak GR 18.1 mmHg Left Ventricle The left ventricle is normal size. GS -22%. There is normal LV segmental wall motion. There is normal left ventricular wall thickness. LVEF is 60-65%. The left ventricular diastolic function is normal. Right Ventricle The right ventricle is normal size. The right ventricular systolic function is normal. Atria The left atrium size is normal. The right atrium size is normal. Aortic Valve The aortic valve is normal in structure. No aortic regurgitation is present. There is no aortic valvular stenosis. Mitral Valve The mitral valve is normal in structure. There is no mitral valve regurgitation noted. There is no mitral valve stenosis. Tricuspid Valve The tricuspid valve is normal in structure. There is trace tricuspid valve regurgitation noted. Pulmonic Valve The pulmonary valve is normal in structure. There is no pulmonic valvular regurgitation. Great Vessels The aortic root is normal in size. The IVC is normal in size and collapses >50% with inspiration. Pericardium There is no pericardial effusion. Conclusion GS -22%. There is normal LV segmental wall motion. LVEF is 60-65%. The aortic root is normal in size. There is no pericardial effusion. DICTATED BY: ALBA WILLOUGHBY MD DATE: 12/11/24 0815 ELECTRONICALLY SIGNED BY: ALBA WILLOUGHBY MD DATE: 12/11/24 1111 PROCEDURE: CAROTID - US CAROTID DUPLEX Carotid Duplex and color-flow Doppler bilateral Clinical Information: tia, storke Comparison: None Findings: Mild bilateral bifurcation plaque is seen. No hemodynamically significant stenosis noted. Left Internal Carotid Artery Peak Systolic Velocity (PSV), Left Internal Carotid to Common Carotid Artery peak systolic velocity ratio, Right Internal Carotid Artery Peak Systolic Velocity (PSV) and Right Internal Carotid to Common Carotid Artery peak systolic velocity ratio, are all within normal limits. External carotid artery velocities normal bilaterally. Bilateral vertebral arteries show normal velocities and waveforms with antegrade flow. Impression: No hemodynamically significant stenosis noted. NASCET CRITERIA. The degree of internal carotid artery stenosis is based on NASCET criteria. Normal is no stenosis. Mild is less than 50% stenosis. Moderate is 50-69% stenosis. Severe is 70% to 99% stenosis. Total occlusion is no detectable patent lumen. DICTATED BY: GRAYSON BARBER MD DATE: 12/10/24 1601 ELECTRONICALLY SIGNED BY: GRAYSON BARBER MD DATE: 12/10/24 1604 PROCEDURE: HEAD WO - CT HEAD/BRAIN W/O CONTRAST Exam Type: CT HEAD/BRAIN W/O CONTRAST Clinical Information: weakness/ Comparison: None CT Dose Index (CTDI): 57.33 mGy Dose Length Product (DLP): 956.79 total mGy-cm Findings: The examination shows atrophy. There is low attenuation throughout the periventricular white matter locations, consistent with chronic small vessel ischemic changes. No acute intra- or extra-axial fluid collections are seen. There is no evidence of acute or chronic hemorrhage. There is no mass effect or shift of midline structures. There are no areas to suggest acute infarct. The skull windows show no significant abnormalities. IMPRESSION: 1. ATROPHY AND CHRONIC SMALL VESSEL ISCHEMIC CHANGES. This study was performed using dose reduction techniques to include automated exposure control and/or adjustment of the mA and/or kV according to patient size. DICTATED BY: GRAYSON BARBER MD DATE: 12/10/24 1300 ELECTRONICALLY SIGNED BY: GRAYSON BARBER MD DATE: 12/10/24 1304 PROCEDURE: CXR1VW - CHEST 1VW Exam Type: CHEST 1VW Clinical Information: cp Comparison: None Findings: The lungs are clear of infiltrates. The heart is enlarged. Bony and soft tissue structures of the chest wall are unremarkable. IMPRESSION: Cardiomegaly. Clear lungs. DICTATED BY: GRAYSON BARBER MD DATE: 12/10/24 1314 ELECTRONICALLY SIGNED BY: GRAYSON BARBER MD DATE: 12/10/24 1317 Assessment/Plan: DISCHARGE DIAGNOSIS Dysarthria secondary to facial swelling, POA TIA and stroke ruled out Allergic reaction secondary to new medication-Baclofen POA Asymptomatic bacteriuria, POA chronic problems: DM type II, HTN, HLD ASSESSMENT: Dysarthria secondary to facial swelling, POA TIA and stroke ruled out -facial swelling and lip swelling completely resolved -passed bed side swallow test -gait and neurological function is at baseline Angioedema, POA Allergic reaction secondary to new medication-Baclofen POA Labs sent for complement levels Patient will be discharged on EpiPen. Patient is required to follow up with the allergy doctor as outpatient. Asymptomatic bacteriuria, POA Urinalysis showing elevated leukocyte esterase and WBCs. Urine culture showing less than 04502 CFU. Patient is asymptomatic. Increase hydration. Discharge Instructions: DATE OF ADMISSION: 12/10/2024 DATE OF DISCHARGE: 12/11/2024 DISPOSITION: Home CONDITION: Medically stable CONSULTANTS: Neurology FOLLOW UP APPOINTMENTS: Please follow-up with your primary care physician within 2-3 days arrange to obtain the allergy workup results from the hospital . Please schedule an appointment with [employer] to rule out allergies. PROCEDURES: NA IMAGING: report attached to summary MICROBIOLOGY: report attached to summary HOME MEDICATIONS: see med rec NEW MEDICATIONS: See medication reconciliation EMERGENCY INSTRUCTIONS: The patient was instructed to present to the nearest Emergency departmentr or call 911 once their symptoms will return or worsen. Use EpiPen if needed as indicated. Home Medications: Reported Medications Vibegron (Gemtesa) 75 Mg Tablet, 1 TAB PO DAILY for 30 Days, #30 TAB 0 Refills 12/10/24 Duloxetine HCl (Duloxetine HCl) 30 Mg Capsule.dr, 1 CAP PO DAILY for 30 Days, #30 CAP 0 Refills 12/10/24 Pravastatin Sodium (Pravastatin Sodium) 20 Mg Tablet, 1 TAB PO DAILY for 30 Days, #30 TAB 0 Refills 12/10/24 Empagliflozin (Jardiance) 10 Mg Tablet, 1 TAB PO DAILY for 30 Days, #30 TAB 0 Refills 12/10/24 Sitagliptin Phos/Metformin HCl (Janumet 50-1,000 mg Tablet) 50 Mg-1,000 Mg Tablet, 1 TAB PO BID for 30 Days, #60 TAB 0 Refills 12/10/24 Gabapentin (Gabapentin) 100 Mg Capsule, 2 CAP PO BID for 30 Days, #90 CAP 0 Refills 12/10/24 Aspirin (Aspirin EC) 81 Mg Tablet.dr, 1 TAB PO DAILY for 30 Days, #30 TAB 0 Refills 12/10/24 Time spent arranging discharge: 1-30 minutes ATTESTATION BY PHYSICIAN I have seen and examined the patient. I reviewed the documentation, medical decision making, and treatment plan as noted by the resident provider above. I agree with the findings and plan of care. MARIA G SORIA MD, MD Dec 11, 2024 12:55
[2024-12-11] MEDS ORDERED: EPIN0.3P2 IM (13:07)
[2024-12-11] MEDS ORDERED: FAMO20TA8 PO (13:07)
[2024-12-11] MEDS ORDERED: LORA10TA7 PO (13:07)
[2024-12-11] MEDS ORDERED: MONT-39 PO (13:07)
--- NOTE | 2024-12-11 16:05 | NUR ---
PT DISCHARGED AT 1430 PIV DC'D. REVIEWED NEW PRESCRIPTIONS WITH PT AND SON AT THE BEDSIDE. INSTRUCTED THE PATIENT TO SEE HER PRIMARY CARE DOCTOR AND OBTAIN A REFERRAL TO AN SLIDE ATTENDANT, PER DR CUMMINS. ALL QUESTIONS ANSWERED AT THIS TIME. PT LEAVING VIA WHEELCHAIR.
--- NOTE | 2024-12-11 16:16 | NUR ---
Pt DC home before PT can eval.
[2024-12-14 17:11] LABS: C1 INHIBITOR FUNCTIONAL 101 (.)
== END 2024-12-11 14:30 | disposition home or self-care (01) ==
LOC: EDH 11:49 → EDHIP 15:16 → INTOOBSV 15:16 → 4AH 20:44
PROVIDERS: ADMIT Internal Medicine; ATTEND Internal Medicine
DX: R47.1 Dysarthria and anarthria (principal); R47.01 Aphasia; T78.3XXA Angioneurotic edema, initial encounter; E11.9 Type 2 diabetes mellitus without complications; I10 Essential (primary) hypertension; E78.5 Hyperlipidemia, unspecified; E78.00 Pure hypercholesterolemia, unspecified; E66.9 Obesity, unspecified; R29.700 NIHSS score 0; T42.8X5A Adverse effect of antiparkinsonism drugs and other central muscle-tone depressants, initial encounter; R82.71 Bacteriuria; Z53.29 Procedure and treatment not carried out because of patient's decision for other reasons; Z90.710 Acquired absence of both cervix and uterus; Z79.899 Other long term (current) drug therapy; Y92.89 Other specified places as the place of occurrence of the external cause
CPT/HCPCS: 96360; 96361 ×2; 99285; 82550; 83721; 84484; 80048; 83880; 85025; 85610; 85730; 87086; 82948 ×5; 81001; 36415 ×2; 71045; 70450; 93880; 92522; 92610; 93005; 86038; 86160 ×2; 93306; 93356; 76376; 86161; J7030; G0378 ×3; J3475; 86215; 86235